=== PATIENT | male | born 1945 | race Two or more races ===

== ENCOUNTER 2018-10-31 14:54 | Inpatient (IN) | payer OTHER ==
[~2018-10-31] VITALS: Ht 175.3 cm; Wt 240.0 kg
[2018-11-08] MEDS ORDERED: SYNTHROID125 MCG (12:07)
[2018-11-12] MEDS ORDERED: XARELTO10 MG (13:09)
[2018-11-12] MEDS ORDERED: ULTRACET PO (14:13)
[2018-11-12] MEDS ORDERED: SKELAXIN800 MG PO (14:13)
[2018-11-15] MEDS ORDERED: FAMOTIDINE20 MG PO (08:08)
[2018-11-15] MEDS ORDERED: DONEPEZIL HCL10 MG PO (08:08)
[2018-11-15] MEDS ORDERED: DILT-XR180 MG PO (08:08)
[2018-11-15] MEDS ORDERED: LEVOTHYROXINE100 MCG PO (08:08)
[2018-11-15] MEDS ORDERED: MONTELUKAST SOD10 MG PO (08:09)
[2018-11-16] MEDS ORDERED: RECTICARE30 GM TOP (12:11)
== END 2018-11-16 13:23 | disposition home or self-care (01) | DRG 395 ==
LOC: O/R 11-15 05:30 → SURH 11-15 05:30 → SURG 11-15 07:00 → SURH 11-15 13:49
PROVIDERS: ADMIT Surgery
PROC: 3E0T3BZ Introduction of Anesthetic Agent into Peripheral Nerves and Plexi, Percutaneous Approach (ICD-10-PCS; 2018-11-15)
PROC: 4A033R1 Measurement of Arterial Saturation, Peripheral, Percutaneous Approach (ICD-10-PCS; 2018-11-15)
PROC: 4A12X4Z Monitoring of Cardiac Electrical Activity, External Approach (ICD-10-PCS; 2018-11-15)
PROC: 0DBP8ZX Excision of Rectum, Via Natural or Artificial Opening Endoscopic, Diagnostic (ICD-10-PCS; principal; 2018-11-15 07:00)
DX: D12.8 Benign neoplasm of rectum (principal); N40.0 Benign prostatic hyperplasia without lower urinary tract symptoms; G47.33 Obstructive sleep apnea (adult) (pediatric); E66.09 Other obesity due to excess calories; I48.0 Paroxysmal atrial fibrillation; Z79.01 Long term (current) use of anticoagulants

== ENCOUNTER 2018-11-09 08:53 | Outpatient (CLI) | payer OTHER ==
[~2018-11-09 08:53] MED LIST: SYNTHROID125 MCG
== END 2018-11-09 08:58 | disposition home or self-care (01) ==
LOC: NUCLEAR 08:53
DX: I82.509 Chronic embolism and thrombosis of unspecified deep veins of unspecified lower extremity (principal)

== ENCOUNTER 2018-11-12 12:10 | Emergency (ER) | payer OTHER ==
[~2018-11-12] VITALS: Ht 175.3 cm; Wt 108.9 kg
[2018-11-12] MEDS ORDERED: XARELTO10 MG (13:09)
[2018-11-12] MEDS ORDERED: SKELAXIN800 MG PO (14:13)
[2018-11-12] MEDS ORDERED: ULTRACET PO (14:13)
== END 2018-11-12 14:57 | disposition home or self-care (01) ==
LOC: ER 12:10
DX: M62.838 Other muscle spasm (principal); M79.605 Pain in left leg; M79.604 Pain in right leg